=== PATIENT | female | born 1955 | race Caucasian/White ===

== ENCOUNTER 2018-10-18 07:51 | Day surgery (SDC) | payer OTHER ==
[~2018-10-18] VITALS: Ht 165.1 cm; Wt 76.9 kg
[~2018-10-18 07:51] MED LIST: Albuterol; Effexor; Flovent HFA; Lipitor; Lisinopril; Lorazepam; [UNRECOGNIZED DRUG - OTHER]
[2018-10-18 09:13] VITALS: Ht 165.1 cm; Wt 76.9 kg
[2018-10-18] MEDS ORDERED: PROPOFOL 20 ML ONE ×2 (09:28→10:42)
[2018-10-18 09:34] VITALS: BP 120/70; PULSE 83; RESP 22
== END 2018-10-18 11:11 | disposition home or self-care (01) ==
LOC: GIL 07:51
PROVIDERS: ATTEND Internal Medicine Gastroenterology
DX: Z12.11 Encounter for screening for malignant neoplasm of colon (principal); K64.8 Other hemorrhoids; D12.3 Benign neoplasm of transverse colon; D17.5 Benign lipomatous neoplasm of intra-abdominal organs; I10 Essential (primary) hypertension; J45.909 Unspecified asthma, uncomplicated
CPT/HCPCS: 45380; 88305; Z7610